=== PATIENT | female | born 1945 | race Caucasian/White ===

== ENCOUNTER → 2020-04-27 | Outpatient (CLI) | payer MEDICARE, OTHER ==
[~2020-04-27] MED LIST: CIPR500T87 PO; DIABETES MED; FERR325T18 PO; GLIM2TAB7 PO; LISI-167 PO; LISI-170 PO; OMEP-110 PO; PANT40TA6 PO; POLY17PO5 PO; PRAV20TA2 PO; PROP10TA16 PO; PROP20TA PO; SUCR1ORA5 PO; UNK HTN MED
== END | disposition home or self-care (01) ==
LOC: CFH 12:27
PROVIDERS: ATTEND Internal Medicine
DX: K80.20 Calculus of gallbladder without cholecystitis without obstruction (principal); R16.1 Splenomegaly, not elsewhere classified; K75.81 Nonalcoholic steatohepatitis (NASH); D69.6 Thrombocytopenia, unspecified; K82.8 Other specified diseases of gallbladder; K74.60 Unspecified cirrhosis of liver; K76.6 Portal hypertension; R18.8 Other ascites; K76.9 Liver disease, unspecified
CPT/HCPCS: 76700